=== PATIENT | male | born 1945 | race Caucasian/White ===

== ENCOUNTER → 2017-05-02 | Outpatient (CLI) | payer OTHER ==
--- NOTE | 2017-05-02 16:43 | PCVCIMAG ---
APPROVED REPORT Study performed: 05/02/2017 12:44:42 EXAM: Comprehensive 2D, Doppler, and color-flow Echocardiogram Patient Location: Echo lab BSA: 1.96 HR: 51 bpmBP: 110/62 mmHg Rhythm: Bradycardia Other Information Study Quality: Adequate Risk Factors: Cardiac Risk Factors: HTN, Hyperlipidemia Indications Tricuspid regurgitation, mitral regurgitation 2D Dimensions LVEF(%): 63.21 (>50%) IVSd: 9.70 (7-11mm) LVDd: 47.50 mm PWd: 10.35 (7-11mm) LVDs: 31.23 (25-40mm) Left Atrium: 45.29 (27-40mm) Aortic Root: 33.07 mm LV Single Plane 4CH: 57.20 % LV Single Plane 2CH: 60.01 %Jiang's LVEF: 58.60 % Biplane EF: 59.5 % Volumes Left Atrial Volume (Systole) Single Plane 4CH: 80.78 mLSingle Plane 2CH: 96.34 mL LA ESV Index: 46.00 mL/m2 Aortic Valve AoV Peak Luke.: 1.54 m/s AO Peak Gr.: 9.46 mmHgLVOT Max P.21 mmHg LVOT Max V: 1.03 m/s Mitral Valve IVRT: 72.66 ms Pulmonary Valve PV Peak Luke.: 0.77 m/sPV Peak Gr.: 2.36 mmHg Pulmonary Vein P Vein S: 0.57 m/sP Vein A: 0.35 m/s P Vein D: 0.94 m/sP Vein A Dur.: 117.6 msec P Vein S/D Ratio: 0.61 Tricuspid Valve TR Peak Luke.: 3.13 m/s TR Peak Gr.: 39.20 mmHg Left Ventricle The left ventricle is normal size. There is normal LV segmental wall motion. There is normal left ventricular wall thickness. Left ventricular systolic function is normal. The left ventricular ejection fraction is within the normal range. LVEF is 55-60%. The left ventricular diastolic function is normal. Right Ventricle The right ventricle is normal size. The right ventricular systolic function is normal. Atria Left atrium is moderately dilated. Right atrium is mildly dilated. Aortic Valve The aortic valve is normal in structure. No aortic regurgitation is present. There is no aortic valvular stenosis. Mitral Valve The mitral valve is normal in structure. Mild mitral regurgitation. No evidence of mitral valve stenosis. Tricuspid Valve The tricuspid valve is normal in structure. Mild to moderate tricuspid regurgitation with PAP of 46 mmHg. Pulmonic Valve The pulmonary valve is normal in structure. Mild pulmonic regurgitation. Great Vessels The aortic root is normal in size. IVC is normal in size and collapses with >50% inspiration Pericardium There is no pericardial effusion. <Conclusion> The left ventricle is normal size. There is normal left ventricular wall thickness. LVEF is 55-60%. The left ventricular diastolic function is normal. The right ventricle is normal size. Left atrium is moderately dilated. Right atrium is mildly dilated. There is no aortic valvular stenosis. Mild mitral regurgitation. Mild to moderate tricuspid regurgitation with PAP of 46 mmHg. There is no pericardial effusion.
== END | disposition home or self-care (01) ==
LOC: PCVCIMAG 13:02
PROVIDERS: ATTEND Internal Medicine Cardiovascular Disease
DX: I08.1 Rheumatic disorders of both mitral and tricuspid valves (principal); E78.5 Hyperlipidemia, unspecified; R00.1 Bradycardia, unspecified; R53.83 Other fatigue; R42 Dizziness and giddiness; I10 Essential (primary) hypertension; G47.33 Obstructive sleep apnea (adult) (pediatric); Z87.01 Personal history of pneumonia (recurrent); Z90.49 Acquired absence of other specified parts of digestive tract; Z87.442 Personal history of urinary calculi; Z79.899 Other long term (current) drug therapy; Z88.6 Allergy status to analgesic agent
CPT/HCPCS: 80061; 93005; 93306; G0463

== ENCOUNTER → 2018-08-30 | Outpatient (CLI) | payer OTHER ==
[~2018-08-30] MED LIST: REGADENOSON 0.4 MG/5 ML DISP.SYRIN. IV ONE
--- NOTE | 2018-08-30 12:08 | PCVCIMAG ---
APPROVED REPORT Study performed: 08/30/2018 08:05:17 EXAM: Comprehensive 2D, Doppler, and color-flow Echocardiogram Patient Location: Echo lab Status: routine BSA: 1.98 HR: 66 bpmBP: 104/68 mmHg Rhythm: LBBB Other Information Study Quality: Adequate Risk Factors: Cardiac Risk Factors: HTN, Hyperlipidemia Indications Hypertension/HDD LBBB, Mitral regurgitation, Hyperlipidemia 2D Dimensions IVSd: 10.46 (7-11mm)LVOT Diam: 17.97 (18-24mm) LVDd: 48.88 mm PWd: 11.50 (7-11mm)Ascending Ao: 31.46 (22-36mm) LVDs: 35.19 (25-40mm) Left Atrium: 46.47 (27-40mm) Aortic Root: 30.19 mm LV Single Plane 4CH: 42.79 % LV Single Plane 2CH: 54.99 % Biplane EF: 50.2 % Volumes Left Atrial Volume (Systole) Single Plane 4CH: 69.46 mLSingle Plane 2CH: 52.56 mL LA ESV Index: 33.00 mL/m2 Aortic Valve AoV Peak Luke.: 1.77 m/s AO Peak Gr.: 12.46 mmHgLVOT Max P.05 mmHg LVOT Max V: 1.33 m/s JAMILAH Vmax: 1.91 cm2 Mitral Valve E/A Ratio: 1.4 MV Decel. Time: 179.35 ms MV E Max Luke.: 0.95 m/s MV A Luke.: 0.66 m/s IVRT: 79.58 ms TDI E/Lateral E': 8.64E/Medial E': 11.88 Medial E' Luke.: 0.08 m/s Lateral E' Luke.: 0.11 m/s Pulmonary Valve PV Peak Gr.: 2.41 mmHg Pulmonary Vein P Vein S: 0.68 m/sP Vein A: 0.32 m/s P Vein D: 0.69 m/sP Vein A Dur.: 79.6 msec P Vein S/D Ratio: 0.99 Tricuspid Valve TR Peak Luke.: 3.22 m/s TR Peak Gr.: 41.36 mmHg Left Ventricle The left ventricle is normal size. There is normal LV segmental wall motion. There is normal left ventricular wall thickness. Left ventricular systolic function is normal. The left ventricular ejection fraction is within the normal range. LVEF is 55-60%. The left ventricular diastolic function is normal. Right Ventricle The right ventricle is normal size. The right ventricular systolic function is normal. Atria The left atrium size is normal. The right atrium size is normal. Aortic Valve The aortic valve is normal in structure. No aortic regurgitation is present. There is no aortic valvular stenosis. Mitral Valve The mitral valve is normal in structure. Mild mitral regurgitation. No evidence of mitral valve stenosis. Tricuspid Valve The tricuspid valve is normal in structure. Mild to moderate tricuspid regurgitation. Pulmonary artery pressure is 49mmHg. Pulmonic Valve The pulmonary valve is normal in structure. Trace pulmonic regurgitation. Great Vessels The aortic root is normal in size. IVC is normal in size and collapses >50% with inspiration. Pericardium There is no pericardial effusion. <Conclusion> The left ventricle is normal size. LVEF is 55-60%. The left ventricular diastolic function is normal. The right ventricle is normal size. The left atrium size is normal. The aortic valve is normal in structure. Mild mitral regurgitation. Mild to moderate tricuspid regurgitation. Pulmonary artery pressure is 49mmHg. The aortic root is normal in size. There is no pericardial effusion.
--- NOTE | 2018-08-30 17:03 | PCVCIMAG ---
APPROVED REPORT Imaging Protocol: Rest Tc-99m/Stress Tc-99m 1 day Study performed: 08/30/2018 08:38:36 Indication: Dyspnea, Fatigue, New LBBB Patient Location: Out-Patient Stress Tech: LUKAS Almonte Stress Nurse: Alice Vinson RN, Milena Hope RN NM Tech:LUKAS Almonte Ht: 5 ft 7 in Wt: 190 lbs BSA: 1.98 m2 HR: 68 bpm BP: 133/74 mmHg BMI: 29.7 Rhythm: Sinus Rhythm, LBBB Medical History Medical History: HTN, Hyperlipidemia Medications: Bystolic, [id number], Pravastatin Allergies: ASA Cardiac Risk Factors: Age Pretest Chest Pain Characteristics: No chest pain Exercise History: Sedentary Meds Held (24 hrs): Bystolic Resting Data Rest SPECT myocardial perfusion imaging was performed in supine position 45 minutes following the intravenous injection of 11.1 mCi of Tc-99m Sestamibi. Time of rest injection: 0900 Administration Route: IV Administration Site: Right Arm Pharmacologic Stress Pharmacologic stress test was performed by injecting Regadenoson 0.4 mg IV push over 10-15 seconds immediately followed by the intravenous injection of 33.2 mCi of Tc-99m Sestamibi. Time of stress injection: 1000 Date: 08/30/2018 Administration Route: IV Administration Site: Left Arm Gated Stress SPECT was performed 45 minutes after stress injection. The images were gated to evaluate regional wall motion and calculate left ventricular ejection fraction. Comments 2015 Prior Nuclear Stress Test: Nonischemic Stress Test Details Stress Test: Pharmacologic stress testing performed using 0.4 mg of regadenoson per 5 mL given IV over 10 seconds. Reason for pharmacologic stress test: physical limitation, uses crutches. HRMax Heart Rate (APMHR): 148 bpm Resting HR: 68 bpmTarget HR (85% APMHR): 125 bpm Max HR Achieved: 93 bpm % of APMHR: 62 Recovery HR: 82 bpm BP Resting BP: 133/74 mmHg Max BP: 139/80 mmHg Recovery BP: 131/73 mmHg ECG Resting ECG: Sinus Rhythm, LBBB Stress ECG: Sinus Rhythm, LBBB Recovery ECG: Sinus Rhythm, LBBB Clinical Reason for Termination: Completed protocol Stress Symptoms: Dyspnea, Nausea, Lightheaded Exercise duration: 0 min 55 sec Symptoms resolved with caffeine. Stress ECG Conclusion non diagnostic Study Quality Study: Good Study Data Post stress, the left ventricular ejection was 74%.. SSS: 0 SRS: 0 SDS: 0 TID = 1.02. Perfusion No evidence of stress induced ischemia or prior myocardial infarction. Wall Motion Normal left ventricular size and function with no regional wall motion abnormalities. Nuclear Conclusion No evidence of stress induced ischemia or prior myocardial infarction. Normal left ventricular size and function with no regional wall motion abnormalities. Post stress, the left ventricular ejection was 74%. No change since prior study dated August 2014. Interpreted by: Elvis Thibodeaux MD Electronically Approved: 08/30/2018 14:52:05 <Conclusion> non diagnostic
== END | disposition home or self-care (01) ==
LOC: PCVCIMAG 08:12
PROVIDERS: ATTEND Internal Medicine Cardiovascular Disease
DX: I08.1 Rheumatic disorders of both mitral and tricuspid valves (principal); R07.2 Precordial pain; I10 Essential (primary) hypertension; E78.00 Pure hypercholesterolemia, unspecified; R53.83 Other fatigue; I44.7 Left bundle-branch block, unspecified; R06.00 Dyspnea, unspecified
CPT/HCPCS: 78452; 93017; 93306; A9500; J2785